=== PATIENT | female | born 1965 | race Caucasian/White ===

== ENCOUNTER 2019-10-31 18:32 | Emergency (ER) | payer SELFPAY ==
[~2019-10-31] VITALS: Ht 160 cm; Wt 108.9 kg
== END 2019-10-31 21:22 | disposition short-term general hospital (02) ==
LOC: ED 18:32
DX: S22.41XA Multiple fractures of ribs, right side, initial encounter for closed fracture (principal); S27.322A Contusion of lung, bilateral, initial encounter; F17.200 Nicotine dependence, unspecified, uncomplicated; Z88.1 Allergy status to other antibiotic agents; V86.69XA Passenger of other special all-terrain or other off-road motor vehicle injured in nontraffic accident, initial encounter; Y93.89 Activity, other specified; Y92.488 Other paved roadways as the place of occurrence of the external cause; Y99.8 Other external cause status